=== PATIENT | male | born 1965 | race Caucasian/White ===

== ENCOUNTER 2023-11-20 19:28 | Emergency (ER) | payer BC, OTHER ==
[2023-11-20 19:49] VITALS: TEMP 98.8; O2SAT 98
[2023-11-20] MEDS ORDERED: ARZOL Silver Nitrate Applicator TP ONE (19:55)
[2023-11-20] MEDS ORDERED: BACIGUENT PACKET ONE (19:58)
--- NOTE | 2023-11-20 20:07 | ERPHSYRPT ---
- History of Present Illness Time Seen by Provider: 11/20/23 19:36 Source: patient Exam Limitations: no limitations Patient Subjective Stated Complaint: nosebleed from the L nare that started 2 hrs Triage Nursing Assessment: pt ambulatory to bed by self with steady, pt alert and oriented x3, pt presents with L nare nose bleed that started 2 hrs ago, tissue in L nare, pt denies any blood thinners, pt denies any pain Physician History: 58-year-old male with history of hypertension, hyperlipidemia, diabetes mellitus, epistaxis on the left side in the past presented to the ER with complaint of bright red blood from left nares started almost 2 hours ago. He applied firm pressure which helps but comes back with removing a pressure. Reports blood going into back of his throat. Denies any chest pain palpitations or shortness of breath. Denies any history of blood dyscrasias, not taking any blood thinners. Take baby aspirin. Reports having similar symptoms multiple times in the past for the last few weeks after he had a fall face down. Does report chronic stuffiness of nose. Not using any nasal sprays. Allergies/Adverse Reactions: No Known Drug Allergies Allergy (Verified 11/20/23 19:35) Home Medications: Amlodipine Besylate 10 mg PO DAILY 11/20/23 [History] Aspirin [Low Dose Aspirin EC] 81 mg PO DAILY 11/20/23 [History] Atenolol [Tenormin] 100 mg PO HS 11/20/23 [History] Atorvastatin Calcium 20 mg PO HS 11/20/23 [History] Lisinopril 20 mg [Zestril 20 MG] 20 mg PO HS 11/20/23 [History] Metformin HCl [Metformin ER Osmotic] 1,000 mg PO BID 11/20/23 [History] Tirzepatide [Mounjaro] 7.5 syringe WEEKLY 11/20/23 [History] Travel Risk - International Travel Have you traveled outside of the country in past 3 weeks: No - Coronavirus Screening Are you exhibiting any of the following symptoms?: No Close contact with a COVID-19 positive Pt in past 14-21 Days: No - Vaccine Status Have you recieved a Covid-19 vaccination: Yes 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: [email or web address] - Vaccination Dates Date of 2cond Vaccination (if applicable): 12/2020 - Review of Systems Constitutional: No Symptoms Eyes: No Symptoms Ears, Nose, & Throat: Nose Congestion, Epistaxis Respiratory: No Symptoms Cardiac: No Symptoms Abdominal/Gastrointestinal: No Symptoms Musculoskeletal: No Symptoms Skin: No Symptoms Neurological: No Symptoms Immunological/Allergic: No Symptoms - Past Medical History Pertinent Past Medical History: Yes Neurological History: No Pertinent History ENT History: No Pertinent History Cardiac History: High Cholesterol, Hypertension Respiratory History: No Pertinent History Endocrine Medical History: Diabetes Type II Musculoskeletal History: Arthritis GI Medical History: No Pertinent History History: No Pertinent History Psycho-Social History: No Pertinent History Male Reproductive Disorders: No Pertinent History - Past Surgical History Past Surgical History: Yes Neuro Surgical History: No Pertinent History Cardiac: No Pertinent History Respiratory: No Pertinent History Gastrointestinal: No Pertinent History Genitourinary: Other Musculoskeletal: Orthopedic Surgery Other Surgical History: R ankle, stent in kidney, spinal surgery - Social History Smoking Status: Former smoker Exposure to second hand smoke: No Drug Use: none Patient Lives Alone: No - Nursing Vital Signs Nursing Vital Signs: Initial Vital Signs Temperature 98.8 F 11/20/23 19:37 Pulse Rate 62 11/20/23 19:37 Respiratory Rate 18 11/20/23 19:37 Blood Pressure 186/86 11/20/23 19:37 O2 Sat by Pulse Oximetry 98 11/20/23 19:37 Pain Scale Pain Intensity 0 - Physical Exam General Appearance: no apparent distress, alert Eye Exam: bilateral eye: normal inspection, PERRL, EOMI Ear Exam: bilateral ear: auricle normal, canal normal, TM normal Nasal Exam: No normal inspection (Left nares slow trickling of blood. Bleeding site on the septum. ) Throat Exam: normal, pharynx normal, No dental tenderness Cardiovascular/Respiratory Exam: normal breath sounds, regular rate/rhythm Neurologic Exam: alert, oriented x 3, cooperative, laundry aid II-XII nml as tested Skin Exam: normal color SpO2 Interpretation: normal SpO2: 98 O2 Delivery: Room Air Procedures - Additional Procedures Progress: Nose Bleed; left nares, rhinorocket placed in left nares, bleeding secured. no complication Ordered Tests: Medication Summary Discontinued Medications Generic Name Dose Route Start Last Admin Trade Name Freq PRN Reason Stop Dose Admin Amoxicillin/Clavulanate Potassium 875 mg 11/20/23 20:50 11/20/23 21:04 Amox Tr/Potassium Clavulanate 875 Mg Tablet PO 11/20/23 20:51 875 mg STAT ONE Administration Amoxicillin/Clavulanate Potassium Confirm 11/20/23 21:03 Amox Tr/Potassium Clavulanate 875 Mg Tablet Administered 11/20/23 21:04 Dose 875 mg .ROUTE .STK-MED ONE Bacitracin Zinc Confirm 11/20/23 19:58 Bacitracin Packet 1 Each Pckt Administered 11/20/23 19:59 Dose 1 each .ROUTE .STK-MED ONE Bacitracin Zinc 0.9 each 11/20/23 20:07 11/20/23 20:08 Bacitracin Packet 1 Each Pckt TP 11/20/23 20:08 0.9 each STAT ONE Administration Silver Nitrate Confirm 11/20/23 19:55 Silver Nitrate 1 Pkt Each Administered 11/20/23 19:56 Dose 1 pkt TP .STK-MED ONE Silver Nitrate 1 pkt 11/20/23 20:06 11/20/23 20:09 Silver Nitrate 1 Pkt Each TP 11/20/23 20:07 1 pkt STAT ONE Administration - Progress Progress: improved, re-examined Progress Note: 11/20/23 20:53 58-year-old is evaluated in the ER for left-sided epistaxis. Having similar symptoms in the past without any new trauma. Patient has a bleeding source identified in the anterior nasal septum area, tried to cauterize with silver nitrate but did not work. Rhino Rocket is placed in. Bleeding is controlled. Observed for almost an hour with no recurrence. Placed on Augmentin. Recommended outpatient follow-up in 3 days for reevaluation and Rhino Rocket removal. Recommended taking Tylenol as needed. Discussed signs symptoms of worsening needing return to ER which she seems understanding. Counseled on blood pressure control. Counseled pt/family regarding: diagnosis, need for follow-up Medical Desision Making - Risk of complications The pt has a mod risk of morbidity or mortality based on: Need for prescription drug management - Departure Departure Disposition: Home Clinical Impression: Epistaxis Condition: Stable Critical Care Time: No Referrals: DOCTOR,NO FAMILY [Primary Care Provider] - Follow Up with PCP/3 days Instructions: Nosebleeds (DC) Additional Instructions: follow up with PCP for re evaltion in 2-3 days and for removal of rhinorocket removal. return to ER for worsening of bleeding /pain etc. take tylenol/ibuprofen as needed. Prescriptions: Amox Tr/Potass Clav. 875 mg [Augmentin 875-125 Tablet] 875 mg PO BID #14 tablet
[2023-11-20] MEDS: BACIGUENT PACKET TP ONE (20:08)
[2023-11-20] MEDS: ARZOL Silver Nitrate Applicator TP ONE (20:09)
[2023-11-20 21:02] VITALS: BP 185/88; PULSE 74; RESP 17
[2023-11-20] MEDS ORDERED: Augmentin 875-125 Tablet ONE (21:03)
[2023-11-20] MEDS: Augmentin 875-125 Tablet PO ONE (21:04)
== END 2023-11-20 21:22 | disposition home or self-care (01) ==
LOC: ED 19:28
DX: R04.0 Epistaxis (principal); E78.5 Hyperlipidemia, unspecified; I10 Essential (primary) hypertension; E11.9 Type 2 diabetes mellitus without complications; Z79.84 Long term (current) use of oral hypoglycemic drugs; Z79.85 Long-term (current) use of injectable non-insulin antidiabetic drugs; Z79.899 Other long term (current) drug therapy
CPT/HCPCS: 30901; 99282; A9270-GY